=== PATIENT | female | born 1950 | race Asian ===

== ENCOUNTER 2024-03-15 19:37 | Emergency (ER) | payer MEDICAID ==
[2024-03-15 19:53] VITALS: BP 145/76; O2SAT 98
--- NOTE | 2024-03-15 20:05 | ED Physician Documentation ---
PD HPI OPHTHO - Stated complaint Stated Complaint: RT EYE IRRITATION - Chief complaint Chief Complaint: Heent - History obtained from History obtained from: Patient, Family - Additional information Additional information: They noticed redness of the inferomedial right eye today. Vision is not affected. She went to the walk-in clinic and they sent her here. No call ahead. Unclear why she came. They were told they need further testing. PD PAST MEDICAL HISTORY - Past Medical History Past Medical History: No - Past Surgical History Past Surgical History: No HEENT: Cataracts - Present Medications Home Medications: Ambulatory Orders Medication Instructions Recorded Confirmed No Known Home Medications 03/15/24 03/15/24 - Allergies Allergies/Adverse Reactions: Allergies Allergy/AdvReac Type Severity Reaction Status Date / Time No Known Drug Allergies Allergy Verified 03/15/24 19:48 - Social History Does the pt smoke?: No Smoking Status: Never smoker - POLST Patient has POLST: No PD ED PE NORMAL - Vitals Vital signs reviewed: Yes - General General: Alert and oriented X 3, No acute distress - HEENT HEENT: PERRL, EOMI, Other (Subconjunctival hemorrhage of the inferolateral right conjunctive a) - Neuro Neuro: Alert and oriented X 3 Results - Vitals Vitals: Vital Signs - 24 hr 03/15/24 19:41 Temperature 36.3 C L Heart Rate 77 Respiratory 16 Rate Blood Pressure 145/76 H O2 Saturation 98 Oxygen O2 Source Room air PD Medical Decision Making - ED course ED course: She has a subconjunctival hemorrhage. Conservative care and the generally benign nature of this diagnosis were discussed. Departure - Departure Disposition: 01 Home, Self Care Clinical Impression: Subconjunctival hemorrhage of right eye Condition: Good Record reviewed to determine appropriate education?: Yes Instructions: ED Eye Injury Subconj Hemorrhage
== END 2024-03-15 20:08 | disposition home or self-care (01) ==
LOC: ED 19:37
DX: H11.31 Conjunctival hemorrhage, right eye (principal)
CPT/HCPCS: 99281; 99282